=== PATIENT | male | born 1955 | race Asian ===

== ENCOUNTER 2017-06-19 09:04 | Emergency (ER) | payer BC ==
[~2017-06-19] VITALS: Ht 160 cm; Wt 68.0 kg
--- NOTE | 2017-06-19 09:09 | NUR ---
CALLED TO TRIAGE BUT PARTHA ANSWER
[2017-06-19 09:10] VITALS: BP 143/92
--- NOTE | 2017-06-19 09:19 | NUR ---
PATIENT STILL NOT IN WAITING ROOM
== END 2017-06-19 10:44 | disposition home or self-care (01) ==
LOC: ER 09:11
DX: S92.352A Displaced fracture of fifth metatarsal bone, left foot, initial encounter for closed fracture (principal); S82.832A Other fracture of upper and lower end of left fibula, initial encounter for closed fracture; I10 Essential (primary) hypertension; W19.XXXA Unspecified fall, initial encounter; Y93.89 Activity, other specified; Y92.89 Other specified places as the place of occurrence of the external cause; Y99.9 Unspecified external cause status
CPT/HCPCS: 73610-TC; 73630-TC; A4606; Z7610

== ENCOUNTER 2024-07-02 13:52 | Emergency (ER) | payer MEDICARE, BC ==
[~2024-07-02] VITALS: Ht 162.6 cm; Wt 63.5 kg
[2024-07-02 14:05] VITALS: BP 150/100; TEMP 98.3
[2024-07-02] MEDS ORDERED: TDAP [DIPH/PERTUSSIS/TET] 0.5 ML VIAL IM ONE (15:35)
[2024-07-02] MEDS: TDAP [DIPH/PERTUSSIS/TET] 0.5 ML VIAL IM ONE (15:38)
[2024-07-02 15:48] VITALS: O2SAT 98
== END 2024-07-02 15:48 | disposition home or self-care (01) ==
LOC: ER 13:52
DX: S61.215A Laceration without foreign body of left ring finger without damage to nail, initial encounter (principal); I10 Essential (primary) hypertension; W29.8XXA Contact with other powered hand tools and household machinery, initial encounter; Y93.89 Activity, other specified; Y92.89 Other specified places as the place of occurrence of the external cause; Y99.8 Other external cause status
CPT/HCPCS: 12001; 90471; 90715; 99283; A6403

== ENCOUNTER 2025-04-25 10:18 | Emergency (ER) | payer MEDICARE, BC ==
[~2025-04-25] VITALS: Ht 162.6 cm; Wt 63.5 kg
[2025-04-25 10:25] VITALS: BP 165/91; TEMP 98.2; O2SAT 97
== END 2025-04-25 11:24 | disposition home or self-care (01) ==
LOC: ER 10:20
DX: S61.211A Laceration without foreign body of left index finger without damage to nail, initial encounter (principal); I10 Essential (primary) hypertension; K58.9 Irritable bowel syndrome, unspecified; E78.5 Hyperlipidemia, unspecified; W26.0XXA Contact with knife, initial encounter; Y93.89 Activity, other specified; Y92.89 Other specified places as the place of occurrence of the external cause; Y99.8 Other external cause status
CPT/HCPCS: 73130-TC